=== PATIENT | female | born 1935 | race American Indian/Alaskan Native ===

== ENCOUNTER 2017-03-21 11:38 | Outpatient (CLI) | payer MEDICARE, OTHER | END 2017-03-21 11:39 | disposition home or self-care (01) | LOC: LABHHL 11:38 | PROVIDERS: ATTEND Internal Medicine | DX: I13.2 Hypertensive heart and chronic kidney disease with heart failure and with stage 5 chronic kidney disease, or end stage renal disease (principal); N18.6 End stage renal disease; I50.9 Heart failure, unspecified; D63.1 Anemia in chronic kidney disease; Z79.899 Other long term (current) drug therapy | CPT/HCPCS: 36415; 83036 ==

== ENCOUNTER 2018-05-29 09:03 | Outpatient (CLI) | payer MEDICARE, OTHER ==
[2018-05-29 10:17] LABS: Basophils # (Auto) 0.1 K/mm3 (0.0-0.1); Basophils % (Auto) 1.9 % (0.0-1.8); Hematocrit 39.8 % (30.3-42.9); Hemoglobin 12.9 gm/dl (10.1-14.3); Lymphocytes # (Auto) 0.7 K/mm3 (1.2-5.4); Lymphocytes % (Auto) 15.1 % (13.4-35.0); Mean Corpuscular HGB Conc 32 % (30-34); Mean Corpuscular Volume 95 fl (79-97); Monocytes # (Auto) 0.5 K/mm3 (0.0-0.8); Monocytes % (Auto) 9.7 % (0.0-7.3); Platelet Count 191 K/mm3 (140-440); Red Blood Count 4.21 M/mm3 (3.65-5.03); Red Cell Distribution Width 16.9 % (13.2-15.2)
[2018-05-29 10:24] LABS: Albumin 4.3 g/dL (3.9-5); Calcium 8.1 mg/dL (8.4-10.2)
[2018-05-29 10:33] LABS: Chol/HDL Ratio 1.7 %
== END 2018-05-29 09:04 | disposition home or self-care (01) ==
LOC: LAB 09:03
PROVIDERS: ATTEND Internal Medicine
DX: I12.0 Hypertensive chronic kidney disease with stage 5 chronic kidney disease or end stage renal disease (principal); E79.0 Hyperuricemia without signs of inflammatory arthritis and tophaceous disease; D63.1 Anemia in chronic kidney disease; N18.6 End stage renal disease; M19.90 Unspecified osteoarthritis, unspecified site; Z99.2 Dependence on renal dialysis
CPT/HCPCS: 36415; 80053; 80061; 85025

== ENCOUNTER 2018-12-18 09:14 | Outpatient (CLI) | payer MEDICARE, OTHER ==
[2018-12-18 10:48] LABS: Basophils % (Auto) 0.8 % (0.0-1.8); Hematocrit 37.8 % (30.3-42.9); Lymphocytes # (Auto) 1.2 K/mm3 (1.2-5.4); Lymphocytes % (Auto) 32.8 % (13.4-35.0); Mean Corpuscular HGB Conc 32 % (30-34); Mean Corpuscular Volume 93 fl (79-97); Monocytes # (Auto) 0.3 K/mm3 (0.0-0.8); Monocytes % (Auto) 9.2 % (0.0-7.3); Platelet Count 188 K/mm3 (140-440); Red Blood Count 4.08 M/mm3 (3.65-5.03); Red Cell Distribution Width 18.7 % (13.2-15.2)
[2018-12-18 11:01] LABS: Albumin 4.5 g/dL (3.9-5); Calcium 9.4 mg/dL (8.4-10.2)
[2018-12-18 11:04] LABS: Chol/HDL Ratio 1.68 %
[2018-12-21 14:06] LABS: Vitamin D, 25-OH, D2 <4 ng/mL
== END 2018-12-18 09:15 | disposition home or self-care (01) ==
LOC: LAB 09:14
PROVIDERS: ATTEND Internal Medicine
DX: Z13.21 Encounter for screening for nutritional disorder (principal); G47.00 Insomnia, unspecified; R73.9 Hyperglycemia, unspecified; I13.2 Hypertensive heart and chronic kidney disease with heart failure and with stage 5 chronic kidney disease, or end stage renal disease; I50.9 Heart failure, unspecified; N18.6 End stage renal disease; M19.90 Unspecified osteoarthritis, unspecified site; D63.1 Anemia in chronic kidney disease; Z86.2 Personal history of diseases of the blood and blood-forming organs and certain disorders involving the immune mechanism; Z90.710 Acquired absence of both cervix and uterus
CPT/HCPCS: 36415; 80053; 80061; 82306; 82607; 83036; 84443; 85025

== ENCOUNTER 2019-05-11 19:15 | Emergency (ER) | payer MEDICARE, OTHER ==
--- NOTE | 2019-05-11 19:52 | Emergency Department Report ---
Blank Doc - Documentation Documentation: 83-year-old female that presents with sob and cough. This initial assessment/diagnostic orders/clinical plan/treatment(s) is/are subject to change based on patient's health status, clinical progression and re- assessment by fellow clinical providers in the ED. Further treatment and workup at subsequent clinical providers discretion. Patient/guardians urged not to elope from the ED as their condition may be serious if not clinically assessed and managed. Initial orders include: 1- Patient sent to MAIN ED for further evaluation and treatment 2- cardiac work-up
[2019-05-11 20:14] LABS: Hematocrit 35.9 % (30.3-42.9); Hemoglobin 11.5 gm/dl (10.1-14.3); Mean Corpuscular HGB Conc 32 % (30-34); Mean Corpuscular Volume 92 fl (79-97); Platelet Count 189 K/mm3 (140-440); Red Blood Count 3.89 M/mm3 (3.65-5.03); Red Cell Distribution Width 17.2 % (13.2-15.2)
--- NOTE | 2019-05-11 20:21 | XRay Report ---
CHEST 2 VIEWS INDICATION / CLINICAL INFORMATION: MAIN: COUGH/FEVER; Had Diaylsis today. Was told by nurse she may have pneumonia. Stephanie since Fri. Produ ctive cough. Fever. Generalized weakness. No meds today. Nonlabored. MAEW. [ End ]. COMPARISON: None available. FINDINGS: SUPPORT DEVICES: None. HEART / MEDIASTINUM: Cardiomegaly LUNGS / PLEURA: Mild bilateral interstitial edema. ADDITIONAL FINDINGS: No significant additional findings. IMPRESSION: Mild bilateral interstitial Signer Name: Noah Maldonado MD Signed: 05/11/2019 8:17 PM Workstation Name: [id number]
[2019-05-11 20:23] LABS: INR 0.97 (0.87-1.13)
[2019-05-11 20:24] LABS: Partial Thromboplastin Time 33.5 Sec. (24.2-36.6)
[2019-05-11 20:28] LABS: Calcium 9.5 mg/dL (8.4-10.2)
[2019-05-11] MEDS ORDERED: PIPERACIL/TAZOBACTA 4.5/NS 100 4.5 GM/100 ML VIAL IV ONE (23:52)
[2019-05-11] MEDS ORDERED: AZITHROMYCIN 250 MG TAB PO ONE (23:56)
--- NOTE | 2019-05-12 00:03 | Emergency Department Report ---
ED General Adult HPI - General Chief complaint: Dyspnea/Respdistress Stated complaint: DIALYSIS Time Seen by Provider: 05/11/19 19:44 Source: patient Mode of arrival: Ambulatory Limitations: Physical Limitation - History of Present Illness Initial comments: Chief complaint: "I may have pneumonia." HPI: Mrs. Martínez is a 83-year-old female with history of hypertension, end-stage renal disease on dialysis Saturday, gout who presents with fever cough since Saturday for the past 3 days. She was told by the dialysis nurse that she had "rattling in her chest". She has productive cough with sputum. Has had several bouts of pneumonia in the past. No history of tobacco use. Her last hemodialysis session occurred today. -: Gradual, days(s) (3) Location: chest Severity scale (0 -10): 0 Consistency: constant Improves with: none Worsens with: none Associated Symptoms: cough - Related Data Home Medications Medication Instructions Recorded Confirmed Last Taken Allopurinol 100 mg PO DAILY 12/12/12 12/07/15 12/14/12 17:00 Ferrous Sulfate 325 mg PO DAILY 12/12/12 12/07/15 12/14/12 10:00 Furosemide 40 mg PO DAILY 12/12/12 12/07/15 12/11/12 12:00 Hydralazine HCl [Apresoline TAB] 50 mg PO BID 12/12/12 12/07/15 12/15/12 05:30 Losartan [Cozaar] 50 mg PO QDAY 12/12/12 12/07/15 12/14/12 23:00 amLODIPine 5 mg PO DAILY 12/12/12 12/07/15 12/14/12 17:00 B Complex 11/Folic/C/Biot/Zinc 1 each PO DAILY 12/07/15 12/07/15 Unknown [Dialyvite with Zinc Tablet] Loratadine 10 mg PO DAILY 12/07/15 12/07/15 Unknown Sevelamer Carbonate [Renvela] 800 mg PO TIDWM 12/07/15 12/07/15 Unknown Temazepam 15 mg PO DAILY 12/07/15 12/07/15 Unknown Terazosin (Nf) [Hytrin (Nf)] 5 mg PO QHS 12/07/15 12/07/15 Unknown Previous Rx's Medication Instructions Recorded Last Taken Type Azithromycin [Zithromax TAB] 1 tab PO QDAY 4 Days #4 tablet 05/12/19 Unknown Rx Allergies Allergy/AdvReac Type Severity Reaction Status Date / Time codeine AdvReac Nausea Verified 12/12/12 09:53 Iodinated Contrast Media AdvReac Vomiting Verified 12/12/12 11:25 [Iodinated Contrast Media - IV Dye] Sulfa (Sulfonamide AdvReac Nausea Verified 12/12/12 09:52 Antibiotics) ED Review of Systems ROS: Stated complaint: DIALYSIS Other details as noted in HPI Comment: All other systems reviewed and negative Constitutional: fever ENT: denies: throat pain Respiratory: cough, shortness of breath Gastrointestinal: denies: abdominal pain, vomiting ED Past Medical Hx - Past Medical History Previous Medical History?: Yes Hx Hypertension: Yes Hx Congestive Heart Failure: No Hx Renal Disease: Yes (on HD) Hx Arthritis: Yes (uses walker) Additional medical history: gout - Surgical History Past Surgical History?: Yes Additional Surgical History: shunt placement left arm, hysterectomy - Social History Smoking Status: Never Smoker Substance Use Type: None - Medications Home Medications: Home Medications Medication Instructions Recorded Confirmed Last Taken Type Allopurinol 100 mg PO DAILY 12/12/12 12/07/15 12/14/12 17:00 History Ferrous Sulfate 325 mg PO DAILY 12/12/12 12/07/15 12/14/12 10:00 History Furosemide 40 mg PO DAILY 12/12/12 12/07/15 12/11/12 12:00 History Hydralazine HCl [Apresoline TAB] 50 mg PO BID 12/12/12 12/07/15 12/15/12 05:30 History Losartan [Cozaar] 50 mg PO QDAY 12/12/12 12/07/15 12/14/12 23:00 History amLODIPine 5 mg PO DAILY 12/12/12 12/07/15 12/14/12 17:00 History B Complex 11/Folic/C/Biot/Zinc 1 each PO DAILY 12/07/15 12/07/15 Unknown History [Dialyvite with Zinc Tablet] Loratadine 10 mg PO DAILY 12/07/15 12/07/15 Unknown History Sevelamer Carbonate [Renvela] 800 mg PO TIDWM 12/07/15 12/07/15 Unknown History Temazepam 15 mg PO DAILY 12/07/15 12/07/15 Unknown History Terazosin (Nf) [Hytrin (Nf)] 5 mg PO QHS 12/07/15 12/07/15 Unknown History Azithromycin [Zithromax TAB] 1 tab PO QDAY 4 Days #4 tablet 05/12/19 Unknown Rx ED Physical Exam - General Limitations: No Limitations General appearance: alert, in no apparent distress - Head Head exam: Present: atraumatic, normocephalic - Eye Eye exam: Present: normal appearance - ENT ENT exam: Present: mucous membranes moist - Neck Neck exam: Present: normal inspection, full ROM - Respiratory Respiratory exam: Present: wheezes, rales. Absent: respiratory distress, accessory muscle use, decreased breath sounds, prolonged expiratory - Cardiovascular Cardiovascular Exam: Present: regular rate, normal rhythm, normal heart sounds. Absent: rubs, gallop - GI/Abdominal GI/Abdominal exam: Present: soft, normal bowel sounds. Absent: distended, tenderness, guarding, rebound - Extremities Exam Extremities exam: Present: normal inspection - Neurological Exam Neurological exam: Present: alert, oriented X3 - Psychiatric Psychiatric exam: Present: normal affect, normal mood - Skin Skin exam: Present: warm, dry, intact, normal color. Absent: rash ED Course Vital Signs 05/11/19 05/11/19 05/11/19 19:30 19:41 23:38 Temperature 98.8 F 98.8 F 98.1 F Pulse Rate 56 L 54 L 56 L Respiratory 18 18 19 Rate Blood Pressure 205/69 205/69 Blood Pressure 148/51 [Left] O2 Sat by Pulse 97 97 100 Oximetry ED Medical Decision Making - Lab Data Result diagrams: 05/11/19 19:50 05/11/19 19:50 Abnormal Lab Results 05/11/19 05/11/19 05/11/19 19:50 19:50 19:50 WBC 4.1 L RBC 3.89 Hgb 11.5 Hct 35.9 MCV 92 MCH 30 MCHC 32 RDW 17.2 H Plt Count 189 PT 13.0 INR 0.97 APTT 33.5 Sodium 132 L Potassium 3.9 Chloride 94.0 L Carbon Dioxide 21 L Anion Gap 21 BUN 15 Creatinine 2.8 H Estimated GFR 19 BUN/Creatinine Ratio 5 Glucose 128 H Calcium 9.5 Troponin T 05/11/19 19:50 WBC RBC Hgb Hct MCV MCH MCHC RDW Plt Count PT INR APTT Sodium Potassium Chloride Carbon Dioxide Anion Gap BUN Creatinine Estimated GFR BUN/Creatinine Ratio Glucose Calcium Troponin T 0.087 H - Radiology Data Radiology results: report reviewed Chest radiograph reflects mild interstitial edema without ed infiltrate I personally reviewed the images, I reviewed radiology impression - Medical Decision Making Diagnosis acute bronchitis, prescribed azithromycin. Normal white blood cell count on CBC. No signs of SIRS or respiratory failure. Critical care attestation.: If time is entered above; I have spent that time in minutes in the direct care of this critically ill patient, excluding procedure time. ED Disposition Clinical Impression: Acute bronchitis Disposition: DC-01 TO HOME OR SELFCARE Is pt being admited?: No Does the pt Need Aspirin: No Condition: Stable Instructions: Acute Bronchitis (ED) Prescriptions: Azithromycin [Zithromax TAB] 1 tab PO QDAY 4 Days #4 tablet Referrals: PRIMARY CARE, [Primary Care Provider] - 2-3 Days
[2019-05-12 05:10] VITALS: BP 161/65
== END 2019-05-12 06:20 | disposition home or self-care (01) ==
LOC: ED 19:15
DX: J20.9 Acute bronchitis, unspecified (principal); I12.0 Hypertensive chronic kidney disease with stage 5 chronic kidney disease or end stage renal disease; N18.6 End stage renal disease; M10.9 Gout, unspecified; M19.90 Unspecified osteoarthritis, unspecified site; Z90.710 Acquired absence of both cervix and uterus; Z99.2 Dependence on renal dialysis; Z98.890 Other specified postprocedural states; Z91.041 Radiographic dye allergy status; Z88.6 Allergy status to analgesic agent; Z88.2 Allergy status to sulfonamides; Z79.899 Other long term (current) drug therapy
CPT/HCPCS: 36415; 71046; 80048; 84484; 85027; 85610; 85730; 99284